=== PATIENT | male | born 1945 | race Caucasian/White ===

== ENCOUNTER 2017-01-21 17:37 | Emergency (ER) | payer MEDICARE, OTHER ==
[~2017-01-21] VITALS: Ht 177.8 cm; Wt 86.4 kg
[~2017-01-21 17:37] MED LIST: FLUTAMIDE PO; MEGACE20 MG PO; METAMUCIL1 PDR PO; MULTIPLE VITAMI1 CAP PO; NEXIUM 40MG40 MG PO
[2017-01-21 17:39] VITALS: TEMP 97.6
[2017-01-21] MEDS ORDERED: THE MEDICINE S200 M2 PO (17:59)
[2017-01-21] MEDS ORDERED: NORCO 325 MG-7.1 TAB PO (17:59)
[2017-01-21] MEDS ORDERED: [UNRECOGNIZED DRUG - OTHER] PO (18:00)
[2017-01-21 18:17] LABS: PH 5 (5-8); SQUAMOUS EPITHELIAL None Seen /hpf; URINE APPEARANCE Clear; URINE BACTERIA None Seen /hpf; URINE BILIRUBIN Negative (NEGATIVE); URINE BLOOD Negative (NEGATIVE); URINE COLOR Yellow; URINE GLUCOSE Negative (NEGATIVE); URINE KETONE Trace (NEGATIVE); URINE WBC 0-2 /hpf
[2017-01-21 18:23] LABS: BASO % 0.5 % (0.0-2.0); EOS # 0.1 (0.0-0.7); GRAN # 5.8 (1.4-6.5); GRAN % 78.8 % (42.2-75.2); HEMATOCRIT 40.4 % (42.0-52.0); HEMOGLOBIN 13.8 g/dl (13.5-18.0); LYMPH % 13.4 % (20.0-51.0); MEAN CELL VOLUME 92 fl (80.0-100.0); MEAN CORPUSCULAR HEMOGLOBIN 31 pg (27.0-31.0); MEAN CORPUSCULAR HGB CONC 34 g/dl (33.0-37.0); MONO # 0.4 (0.1-0.6); PLATELET COUNT 243 K/mm3 (130-400); RED BLOOD COUNT 4.39 M/mm3 (4.20-5.60); REDCELL DISTRIBUTION WIDTH-CV 13.3 % (11.5-14.5); WHITE BLOOD COUNT 7.3 K/mm3 (4.8-10.8)
[2017-01-21 18:34] LABS: ALANINE AMINOTRANSFERASE 29 U/L (21-72); ALBUMIN 3.8 gm/dL (3.5-5.0); ALKALINE PHOSPHATASE 72 U/L (50-136); ANION GAP 11 mmol/L (7-16); BILIRUBIN,TOTAL 0.7 mg/dL (0.0-1.0); BLOOD UREA NITROGEN 24 mg/dL (9-20); CALCIUM 8.8 mg/dL (8.4-10.2); CARBON DIOXIDE 27 mmol/L (22-30); CHLORIDE 101 mmol/L (98-107); CREATININE, serum 0.79 mg/dL (0.66-1.25); GLUCOSE 154 mg/dL (74-106); LIPASE 47 U/L (23-300); POTASSIUM 3.8 mmol/L (3.4-5.0); SODIUM 139 mmol/L (137-145); TOTAL PROTEIN 6.6 gm/dL (6.4-8.2)
[2017-01-21 18:39] LABS: C-REACTIVE PROTEIN < 0.5 mg/dL (0.0-0.9)
[2017-01-21] MEDS ORDERED: CARAFATE 1GM1 G PO (19:02)
[2017-01-21] MEDS ORDERED: PROTONIX 40MG T40 MG PO (19:02)
[2017-01-21 19:16] VITALS: BP 117/70; PULSE 57
== END 2017-01-21 19:16 | disposition home or self-care (01) ==
LOC: COL.ER 17:37
PROVIDERS: Emergency Medicine
DX: R10.13 Epigastric pain (principal); Z87.11 Personal history of peptic ulcer disease; Z85.46 Personal history of malignant neoplasm of prostate
CPT/HCPCS: C9113; J2405; J7030

== ENCOUNTER → 2017-05-29 | Outpatient (CLI) | payer MEDICARE, OTHER ==
[~2017-05-29] MED LIST changes: +CARAFATE 1GM1 G PO; +NORCO 325 MG-7.1 TAB PO; +PROTONIX 40MG T40 MG PO; +THE MEDICINE S200 M2 PO; +[UNRECOGNIZED DRUG - OTHER] PO
== END ==
LOC: COL.RAD 08:00
DX: M25.551 Pain in right hip (principal)
CPT/HCPCS: J3301; Q9967

== ENCOUNTER → 2017-09-05 | Outpatient (CLI) | payer MEDICARE | LOC: COL.LAB 11:34 | DX: Z01.812 Encounter for preprocedural laboratory examination (principal); M16.12 Unilateral primary osteoarthritis, left hip ==

== ENCOUNTER 2022-01-16 09:06 | Outpatient (CLI) | payer MEDICARE ==
[~2022-01-16] VITALS: Ht 177.8 cm; Wt 76.2 kg
[2022-01-16 09:36] VITALS: BP 115/78; PULSE 67; TEMP 98
[2022-01-16 11:03] VITALS: BP 116/73; PULSE 56
[2022-01-16 11:15] VITALS: BP 119/73; PULSE 63
[2022-01-16 11:30] VITALS: BP 120/71; PULSE 70
[2022-01-16 12:00] VITALS: BP 119/73; PULSE 70
== END 2022-01-16 12:20 | disposition home or self-care (01) ==
LOC: COL.RAD 09:06
DX: M43.16 Spondylolisthesis, lumbar region (principal); M43.17 Spondylolisthesis, lumbosacral region; M95.4 Acquired deformity of chest and rib; M54.16 Radiculopathy, lumbar region; Z98.1 Arthrodesis status
CPT/HCPCS: Q9965

== ENCOUNTER → 2022-04-12 | Outpatient (CLI) | payer MEDICARE, OTHER | LOC: MHCPAIN 08:49 | DX: M47.897 Other spondylosis, lumbosacral region (principal); M54.16 Radiculopathy, lumbar region; M53.3 Sacrococcygeal disorders, not elsewhere classified; M96.1 Postlaminectomy syndrome, not elsewhere classified | CPT/HCPCS: G0463; J1100; Q9967 ==

== ENCOUNTER → 2022-04-13 | Outpatient (CLI) | payer MEDICARE, OTHER | LOC: MHCPAIN 09:37 | DX: M47.816 Spondylosis without myelopathy or radiculopathy, lumbar region (principal); M54.16 Radiculopathy, lumbar region; M53.3 Sacrococcygeal disorders, not elsewhere classified ==

== ENCOUNTER → 2022-05-01 | Outpatient (CLI) | payer MEDICARE, OTHER | LOC: MHCPAIN 10:35 | DX: M47.896 Other spondylosis, lumbar region (principal); M54.17 Radiculopathy, lumbosacral region; M96.1 Postlaminectomy syndrome, not elsewhere classified | CPT/HCPCS: G0463 ==